=== PATIENT | female | born 2000 | race African-American/Black ===

== ENCOUNTER 2021-10-10 03:34 | Emergency (ER) | payer MEDICAID ==
[~2021-10-10] VITALS: Ht 149.9 cm; Wt 50.0 kg
[2021-10-10] MEDS ORDERED: ONDANSETRON HCL 4MG/2ML INJ IV STA (06:42)
[2021-10-10] MEDS ORDERED: KETOROLAC 30MG/ML VIAL IV STA (06:42)
[2021-10-10] MEDS ORDERED: SODIUM CHLORIDE 0.9% 1,000 ML IV ONE ×2 (06:45→09:00)
[2021-10-10 08:33] LABS: BASOPHILS % 0.2 % (0.0-2.0); EOSINOPHILS % 0.1 % (0.0-5.0); HEMATOCRIT. 37.2 % (36.0-48.0); HEMOGLOBIN. 12.4 g/dL (12.0-16.0); LYMPHOCYTES % 10.6 % (20.0-50.0); MEAN CORPUSCULAR HEMOGLOBIN 26.9 pg (28.0-32.0); MEAN CORPUSCULAR VOLUME 80.6 fL (81.0-99.0); MEAN PLATELET VOLUME 7.6 fl (7.4-10.4); NEUTROPHILS % 75.1 % (40.0-76.0); PLATELET 199 x1000/uL (130-400); RED BLOOD CELL COUNT 4.61 mill/uL (4.2-5.4); RED CELL DISTRIBUTION WIDTH 14.8 % (11.6-14.6)
[2021-10-10 08:39] LABS: CHLORIDE 108 mEq/L (98-107)
[2021-10-10 08:48] LABS: HCG SCREEN NEGATIVE
[2021-10-10 08:50] LABS: CLARITY URINE CLEAR (CLEAR); COLOR URINE YELLOW (YELLOW); KETONES URINE 4+ (NEGATIVE); LEUKOCYTE ESTERASE URINE NEGATIVE (NEGATIVE); NITRITE URINE NEGATIVE (NEGATIVE); OCCULT BLOOD URINE NEGATIVE (NEGATIVE); PH URINE 5.5 (4.5-8.0); PROTEIN URINE NEGATIVE (NEGATIVE); SPECIFIC GRAVITY URINE 1.032 (1.005-1.030); UROBILINOGEN URINE 0.2 E.U./dL (0.2-1.0)
[2021-10-10] MEDS ORDERED: ONDA4TAB5 MT (10:40)
[2021-10-10] MEDS ORDERED: IBUP-2029 MT (10:40)
[2021-10-10 11:48] VITALS: BP 111/74
== END 2021-10-10 11:49 | disposition home or self-care (01) ==
LOC: ER 03:41
DX: U07.1 COVID-19 (principal); B34.9 Viral infection, unspecified; I49.9 Cardiac arrhythmia, unspecified
CPT/HCPCS: 36415; 80053; 81003; 81025; 83690; 84703; 85025; 93005; 96361; 96374; 96375; 99284; C9803; J1885; J2405; J7030; U0003; U0005

== ENCOUNTER 2022-04-04 14:45 | Emergency (ER) | payer MEDICAID ==
[~2022-04-04] VITALS: Ht 149.9 cm; Wt 55.0 kg
[~2022-04-04 14:45] MED LIST: IBUP-2029 MT; ONDA4TAB5 MT
[2022-04-04 16:31] VITALS: BP 110/71
[2022-04-04] MEDS ORDERED: IBUPROFEN 600MG TABLET PO STA (16:31)
[2022-04-04] MEDS ORDERED: IBUP-2029 MT (18:13)
== END 2022-04-04 18:18 | disposition home or self-care (01) ==
LOC: ER 14:45
DX: B34.9 Viral infection, unspecified (principal); Z20.822 Contact with and (suspected) exposure to COVID-19
CPT/HCPCS: 71045; 81025; 87070; 87426; 87430; 99284; C9803

== ENCOUNTER 2023-04-15 05:05 | Emergency (ER) | payer MEDICAID ==
[~2023-04-15 05:05] MED LIST changes: +ALBU18HF2 IH
[2023-04-15 05:16] VITALS: PULSE 87; RESP 19
== END 2023-04-15 06:04 | disposition left against medical advice (07) ==
LOC: ER 05:05
DX: Z53.21 Procedure and treatment not carried out due to patient leaving prior to being seen by health care provider (principal)
CPT/HCPCS: 99281